=== PATIENT | male | born 1955 | race Caucasian/White ===

== ENCOUNTER 2019-10-28 00:26 | Inpatient (IN) ==
[2019-10-28 01:26] LABS: Basophils % 0.1 %; Eosinophils % 0.4 %; Hematocrit 41.6 % (37.5-50.1); Hemoglobin 12.8 g/dL (12.9-16.9); Immature Granulocytes % 0.1 % (0-4); Lymphocytes # 0.2 K/mcL (0.6-4.6); Lymphocytes % 3.3 %; Mean Corpuscular HGB Conc 30.8 g/dL (31.6-35.5); Mean Corpuscular Hemoglobin 28.5 pg (28.0-33.3); Mean Corpuscular Volume 92.7 fL (83.0-100.0); Monocytes # 0.1 K/mcL (0.0-1.3); Monocytes % 1.1 %; Platelet Count 196 K/mcL (140-400); Red Blood Count 4.49 M/mcL (4.19-5.50); Red Cell Distribution Width 14.8 % (11.5-14.5); White Blood Count 7.4 K/mcL (4.3-11.1)
[2019-10-28 01:34] LABS: Prothrombin Time 22.7 Seconds (9.4-12.1)
[2019-10-28 01:37] LABS: Activated Partial Thrombo Time 31.5 Seconds (26.0-36.0)
[2019-10-28 01:47] LABS: BUN/Creatinine Ratio 22 (6-26); Blood Urea Nitrogen 18 mg/dL (8-23); Calcium 9.3 mg/dL (8.6-10.3); Carbon Dioxide 25 mEq/L (23-29); Chloride 106 mEq/L (98-107); Glucose 101 mg/dL (70-105); Osmolality,Calculated 290 (280-300); Potassium 3.9 mEq/L (3.5-5.1); Sodium 139 mEq/L (136-145); Troponin I < 0.03 ng/mL (< 0.04); eGFR For African Americans > 60 (> 60); eGFR For Non-African Americans > 60 (> 60)
[2019-10-28] MEDS ORDERED: cephALEXin 500 MG CAPSULE PO STA (05:21)
[2019-10-28] MEDS ORDERED: cefTRIAXone 2,000 MG in Water for inj. (sterile) 20 ML IVP STA (05:45)
[2019-10-28] MEDS: Furosemide 40 MG/4 ML VIAL IVP SCH ×2 (12:58→22:17)
[2019-10-28] MEDS ORDERED: Perflutren Lipid Microsphere 1.3 ML in 0.9 % Sodium Chloride 8.7 ML IVP ONE (15:52)
[2019-10-28] MEDS ORDERED: Warfarin perPT PO PRN (20:58)
[2019-10-28] MEDS ORDERED: *HR* Warfarin 2.5 MG TABLET PO ONE (21:45)
[2019-10-29 02:00] LABS: Basophils % 0.1 %; Hematocrit 36.2 % (37.5-50.1); Hemoglobin 11.6 g/dL (12.9-16.9); Immature Granulocytes % 1.9 % (0-4); Lymphocytes # 0.4 K/mcL (0.6-4.6); Lymphocytes % 2.1 %; Mean Corpuscular Hemoglobin 28.5 pg (28.0-33.3); Mean Corpuscular Volume 88.9 fL (83.0-100.0); Mean Platelet Volume 9.2 fL (9.4-12.4); Monocytes # 0.5 K/mcL (0.0-1.3); Monocytes % 3.2 %; Platelet Count 165 K/mcL (140-400); Red Blood Count 4.07 M/mcL (4.19-5.50); Red Cell Distribution Width 15.7 % (11.5-14.5); Segmented Neutrophils % 92.7 %
[2019-10-29 02:07] LABS: Neutrophils # 15.6 K/mcL (1.6-8.9); White Blood Count 16.8 K/mcL (4.3-11.1)
[2019-10-29 02:18] LABS: Prothrombin Time 34.6 Seconds (9.4-12.1)
[2019-10-29 02:19] LABS: BUN/Creatinine Ratio 22 (6-26); Blood Urea Nitrogen 25 mg/dL (8-23); Calcium 8.7 mg/dL (8.6-10.3); Carbon Dioxide 26 mEq/L (23-29); Chloride 105 mEq/L (98-107); Glucose 93 mg/dL (70-105); Osmolality,Calculated 290 (280-300); Sodium 138 mEq/L (136-145); eGFR For African Americans > 60 (> 60); eGFR For Non-African Americans > 60 (> 60)
[2019-10-29 02:41] LABS: Platelet Estimate Normal (Normal)
[2019-10-29] MEDS: cefTRIAXone 2,000 MG in Water for inj. (sterile) 20 ML IVP SCH (05:41)
[2019-10-29] MEDS: Furosemide 40 MG/4 ML VIAL IVP SCH (09:09)
[2019-10-30 02:33] LABS: BUN/Creatinine Ratio 28 (6-26); Blood Urea Nitrogen 23 mg/dL (8-23); Calcium 8.7 mg/dL (8.6-10.3); Carbon Dioxide 26 mEq/L (23-29); Chloride 102 mEq/L (98-107); Glucose 78 mg/dL (70-105); Magnesium 1.9 mg/dL (1.6-2.6); Osmolality,Calculated 285 (280-300); Potassium 4.2 mEq/L (3.5-5.1); Sodium 136 mEq/L (136-145); eGFR For African Americans > 60 (> 60); eGFR For Non-African Americans > 60 (> 60)
[2019-10-30] MEDS: cefTRIAXone 2,000 MG in Water for inj. (sterile) 20 ML IVP SCH (06:25)
[2019-10-30] MEDS: Trolamine Salicylate/Aloe Vera 85 APPL/85 GM TUBE TP PRN ×3 (10:11→23:25)
[2019-10-30] MEDS ORDERED: Acetaminophen 325 MG TABLET PO PRN (11:10)
[2019-10-30] MEDS: Acetaminophen 325 MG TABLET PO PRN ×2 (11:45→17:41)
[2019-10-30 16:02] LABS: Hematocrit 34.5 % (37.5-50.1); Hemoglobin 10.8 g/dL (12.9-16.9); Mean Corpuscular HGB Conc 31.3 g/dL (31.6-35.5); Mean Corpuscular Hemoglobin 28.6 pg (28.0-33.3); Mean Corpuscular Volume 91.3 fL (83.0-100.0); Mean Platelet Volume 9.7 fL (9.4-12.4); Platelet Count 150 K/mcL (140-400); Red Blood Count 3.78 M/mcL (4.19-5.50); Red Cell Distribution Width 15.4 % (11.5-14.5)
[2019-10-30 16:08] LABS: INR 1.9; Prothrombin Time 21.1 Seconds (9.4-12.1)
[2019-10-30] MEDS ORDERED: *HR* Warfarin 2.5 MG TABLET PO ONE (18:00)
[2019-10-31 02:51] LABS: Hemoglobin 11.2 g/dL (12.9-16.9); Mean Corpuscular HGB Conc 31.1 g/dL (31.6-35.5); Mean Corpuscular Hemoglobin 28.3 pg (28.0-33.3); Mean Corpuscular Volume 90.9 fL (83.0-100.0); Mean Platelet Volume 9.7 fL (9.4-12.4); Platelet Count 151 K/mcL (140-400); Red Blood Count 3.96 M/mcL (4.19-5.50); Red Cell Distribution Width 15.1 % (11.5-14.5); White Blood Count 6.7 K/mcL (4.3-11.1)
[2019-10-31 03:00] LABS: INR 1.7; Prothrombin Time 19.1 Seconds (9.4-12.1)
[2019-10-31 03:13] LABS: BUN/Creatinine Ratio 26 (6-26); Blood Urea Nitrogen 24 mg/dL (8-23); Calcium 8.7 mg/dL (8.6-10.3); Carbon Dioxide 28 mEq/L (23-29); Chloride 102 mEq/L (98-107); Glucose 104 mg/dL (70-105); Osmolality,Calculated 288 (280-300); Potassium 4.7 mEq/L (3.5-5.1); Sodium 137 mEq/L (136-145); eGFR For African Americans > 60 (> 60); eGFR For Non-African Americans > 60 (> 60)
[2019-10-31] MEDS: Nystatin POWDER 30 GM BOTTLE TP SCH ×4 (03:39→22:21)
[2019-10-31] MEDS: cefTRIAXone 2,000 MG in Water for inj. (sterile) 20 ML IVP SCH (06:03)
[2019-10-31] MEDS: Acetaminophen 325 MG TABLET PO PRN ×2 (09:04→17:12)
[2019-10-31] MEDS ORDERED: *HR* Warfarin 5 MG TABLET PO ONE (18:00)
[2019-11-01 02:22] LABS: INR 1.7
[2019-11-01] MEDS: Acetaminophen 325 MG TABLET PO PRN (03:25)
[2019-11-01] MEDS: cefTRIAXone 2,000 MG in Water for inj. (sterile) 20 ML IVP SCH (05:10)
[2019-11-01] MEDS: Furosemide 20 MG TABLET PO SCH (10:15)
[2019-11-01] MEDS: Nystatin POWDER 30 GM BOTTLE TP SCH ×3 (10:15→22:31)
[2019-11-01] MEDS ORDERED: *HR* Warfarin 5 MG TABLET PO ONE (18:00)
[2019-11-02 02:49] LABS: INR 1.7; Prothrombin Time 19.2 Seconds (9.4-12.1)
[2019-11-02] MEDS: Acetaminophen 325 MG TABLET PO PRN (04:16)
[2019-11-02] MEDS: cefTRIAXone 2,000 MG in Water for inj. (sterile) 20 ML IVP SCH (06:18)
[2019-11-02] MEDS: Nystatin POWDER 30 GM BOTTLE TP SCH ×2 (09:47→15:41)
[2019-11-02] MEDS: Furosemide 20 MG TABLET PO SCH (09:47)
[2019-11-02] MEDS ORDERED: *HR* Warfarin 5 MG TABLET PO ONE (18:00)
[2019-11-03] MEDS: Nystatin POWDER 30 GM BOTTLE TP SCH ×3 (00:13→16:08)
[2019-11-03] MEDS: Acetaminophen 325 MG TABLET PO PRN (00:16)
[2019-11-03] MEDS: cefTRIAXone 2,000 MG in Water for inj. (sterile) 20 ML IVP SCH (05:34)
[2019-11-03 06:19] LABS: INR 1.8; Prothrombin Time 20.9 Seconds (9.4-12.1)
[2019-11-03] MEDS: Furosemide 20 MG TABLET PO SCH (10:01)
[2019-11-03] MEDS ORDERED: *HR* Warfarin 3 MG TABLET PO ONE (18:00)
[2019-11-04] MEDS: Nystatin POWDER 30 GM BOTTLE TP SCH ×2 (00:55→09:54)
[2019-11-04] MEDS: Acetaminophen 325 MG TABLET PO PRN (03:47)
[2019-11-04] MEDS: cefTRIAXone 2,000 MG in Water for inj. (sterile) 20 ML IVP SCH (05:59)
[2019-11-04 06:49] LABS: Hematocrit 37.5 % (37.5-50.1); Hemoglobin 11.8 g/dL (12.9-16.9); Mean Corpuscular HGB Conc 31.5 g/dL (31.6-35.5); Mean Corpuscular Hemoglobin 28.6 pg (28.0-33.3); Mean Platelet Volume 9.6 fL (9.4-12.4); Platelet Count 204 K/mcL (140-400); Red Blood Count 4.12 M/mcL (4.19-5.50); Red Cell Distribution Width 14.8 % (11.5-14.5); White Blood Count 6.3 K/mcL (4.3-11.1)
[2019-11-04 06:51] VITALS: BP 115/71
[2019-11-04 06:53] LABS: INR 2.2; Prothrombin Time 24.8 Seconds (9.4-12.1)
[2019-11-04 07:10] LABS: Alanine Aminotransferase 18 Units/L (7-52); Albumin 3.2 g/dL (3.5-5.7); Alkaline Phosphatase 35 Units/L (34-104); Aspartate Amino Transferase 17 Units/L (13-39); BUN/Creatinine Ratio 21 (6-26); Bilirubin,Total 0.3 mg/dL (0.3-1.0); Blood Urea Nitrogen 15 mg/dL (8-23); Calcium 8.7 mg/dL (8.6-10.3); Carbon Dioxide 28 mEq/L (23-29); Chloride 103 mEq/L (98-107); Globulin 3.2 g/dL (2.4-3.5); Glucose 97 mg/dL (70-105); Osmolality,Calculated 291 (280-300); Potassium 4.1 mEq/L (3.5-5.1); Sodium 140 mEq/L (136-145); Total Protein 6.4 g/dL (6.4-8.9); eGFR For African Americans > 60 (> 60); eGFR For Non-African Americans > 60 (> 60)
[2019-11-04] MEDS: Furosemide 20 MG TABLET PO SCH (09:54)
[2019-11-04] MEDS ORDERED: FLU Vac QV 19-20 (6Month+)/PF 0.5 ML SYRINGE IM ONE (12:38)
[2019-11-04] MEDS ORDERED: Aminoglycoside Consult 1 EACH MC ONE (15:40)
[2019-11-04] MEDS ORDERED: *HR* Warfarin 2.5 MG TABLET PO ONE (18:00)
== END 2019-11-04 15:41 | DRG 383 ==
LOC: CDU 00:26 → EMEROOARM 00:26 → SUATTDRO 06:12 → CDU 07:44 → 2NENU 12:42
PROVIDERS: ADMIT Family Medicine; ATTEND Internal Medicine

== ENCOUNTER 2020-10-13 10:19 | Inpatient (IN) ==
[2020-10-13] MEDS ORDERED: Warfarin perPT PO PRN (18:00)
[2020-10-13] MEDS ORDERED: Naloxone 0.4 MG/ML INJ IVP PRN (21:23)
[2020-10-13] MEDS ORDERED: Ondansetron 4 MG/2 ML VIAL IVP PRN (21:23)
[2020-10-13] MEDS ORDERED: *HR* Promethazine 25 MG/ML VIAL IM PRN (21:23)
[2020-10-13] MEDS ORDERED: Ketoconazole 2% CRM 15 GM TUBE TP PRN (21:30)
[2020-10-13 23:12] LABS: Basophils % 0.1 %; Eosinophils # 0.2 K/mcL (0.0-0.6); Eosinophils % 2.3 %; Hematocrit 37.1 % (37.5-50.1); Hemoglobin 11.2 g/dL (12.9-16.9); Immature Granulocytes % 0.1 % (0-4); Lymphocytes # 1.3 K/mcL (0.6-4.6); Lymphocytes % 18.5 %; Mean Corpuscular HGB Conc 30.2 g/dL (31.6-35.5); Mean Corpuscular Hemoglobin 27.3 pg (28.0-33.3); Mean Corpuscular Volume 90.3 fL (83.0-100.0); Monocytes # 0.8 K/mcL (0.0-1.3); Monocytes % 11.5 %; Neutrophils # 4.6 K/mcL (1.6-8.9); Platelet Count 213 K/mcL (140-400); Red Blood Count 4.11 M/mcL (4.19-5.50); Red Cell Distribution Width 14.4 % (11.5-14.5); Segmented Neutrophils % 67.5 %; White Blood Count 6.9 K/mcL (4.3-11.1)
[2020-10-13 23:15] LABS: INR 2.7; Prothrombin Time 30.9 Seconds (9.4-12.1)
[2020-10-13] MEDS ORDERED: *HR* Warfarin 2.5 MG TABLET PO ONE (23:30)
[2020-10-13 23:47] LABS: Alanine Aminotransferase 8 Units/L (7-52); Albumin 3.6 g/dL (3.5-5.7); Albumin/Globulin Ratio 1.2 (1.1-2.2); Alkaline Phosphatase 37 Units/L (34-104); Aspartate Amino Transferase 10 Units/L (13-39); BUN/Creatinine Ratio 21 (6-26); Bilirubin,Total 0.6 mg/dL (0.3-1.0); Blood Urea Nitrogen 16 mg/dL (8-23); Calcium 9.2 mg/dL (8.6-10.3); Carbon Dioxide 32 mEq/L (23-29); Chloride 102 mEq/L (98-107); Chol/HDL Ratio 3.9 (0-4.9); Cholesterol 159 mg/dL (< 200); Globulin 3.1 g/dL (2.4-3.5); Glucose 93 mg/dL (70-105); HDL Cholesterol 41 mg/dL (40-59); LDL Cholesterol,Calculated 98 mg/dL (< 100); Magnesium 1.9 mg/dL (1.6-2.6); Osmolality,Calculated 287 (280-300); Phosphorous 3.2 mg/dL (2.7-4.5); Potassium 4.6 mEq/L (3.5-5.1); Sodium 138 mEq/L (136-145); Total Protein 6.7 g/dL (6.4-8.9); Triglycerides 99 mg/dL (< 150); eGFR For African Americans > 60 (> 60); eGFR For Non-African Americans > 60 (> 60)
[2020-10-14] MEDS: Cefepime HCl 1,000 MG in Water for inj. (sterile) 10 ML IVP SCH ×4 (00:12→23:03)
[2020-10-14] MEDS: Vancomycin 2,000 MG/520 ML IV.SOLN IVPB SCH ×3 (00:15→23:02)
[2020-10-14] MEDS: *HR* OxyCODONE Immed Rel 5 MG TABLET PO PRN ×4 (02:22→22:14)
[2020-10-14] MEDS: Furosemide 40 MG TABLET PO SCH (07:41)
[2020-10-14 07:52] LABS: Basophils % 0.1 %; Eosinophils # 0.1 K/mcL (0.0-0.6); Immature Granulocytes % 0.3 % (0-4); Lymphocytes % 14.5 %; Mean Corpuscular HGB Conc 30.6 g/dL (31.6-35.5); Mean Corpuscular Hemoglobin 27.6 pg (28.0-33.3); Mean Corpuscular Volume 90.5 fL (83.0-100.0); Monocytes # 0.8 K/mcL (0.0-1.3); Monocytes % 12.1 %; Neutrophils # 4.9 K/mcL (1.6-8.9); Platelet Count 212 K/mcL (140-400); Red Blood Count 3.98 M/mcL (4.19-5.50); Red Cell Distribution Width 14.5 % (11.5-14.5); White Blood Count 6.9 K/mcL (4.3-11.1)
[2020-10-14 07:56] LABS: INR 2.7; Prothrombin Time 30.7 Seconds (9.4-12.1)
[2020-10-14 08:03] LABS: BUN/Creatinine Ratio 19 (6-26); Blood Urea Nitrogen 15 mg/dL (8-23); Calcium 9.1 mg/dL (8.6-10.3); Carbon Dioxide 32 mEq/L (23-29); Chloride 103 mEq/L (98-107); Glucose 93 mg/dL (70-105); Osmolality,Calculated 289 (280-300); Potassium 4.1 mEq/L (3.5-5.1); Sodium 139 mEq/L (136-145); eGFR For African Americans > 60 (> 60); eGFR For Non-African Americans > 60 (> 60)
[2020-10-14] MEDS: Miconazole 2% ointment 141 APPL/141 GM TUBE TP SCH ×2 (17:53→20:41)
[2020-10-14] MEDS ORDERED: *HR* Warfarin 5 MG TABLET PO ONE (18:00)
[2020-10-15 03:02] LABS: INR 3.1; Prothrombin Time 34.3 Seconds (9.4-12.1)
[2020-10-15] MEDS: Cefepime HCl 1,000 MG in Water for inj. (sterile) 10 ML IVP SCH ×2 (07:48→16:41)
[2020-10-15] MEDS: *HR* OxyCODONE Immed Rel 5 MG TABLET PO PRN ×3 (07:48→21:46)
[2020-10-15] MEDS: Furosemide 40 MG TABLET PO SCH ×2 (07:48→16:42)
[2020-10-15] MEDS: Miconazole 2% ointment 141 APPL/141 GM TUBE TP SCH ×2 (10:11→21:25)
[2020-10-15] MEDS: Vancomycin 2,000 MG/520 ML IV.SOLN IVPB SCH (14:15)
[2020-10-15] MEDS ORDERED: *HR* Warfarin 2.5 MG TABLET PO ONE (18:00)
[2020-10-15] MEDS: Sennosides/Docusate Sodium TABLET PO SCH (21:46)
[2020-10-16] MEDS: Cefepime HCl 1,000 MG in Water for inj. (sterile) 10 ML IVP SCH ×4 (00:05→23:37)
[2020-10-16] MEDS: Vancomycin 1,750 MG/517.5 ML IV.SOLN IVPB SCH ×3 (00:06→23:38)
[2020-10-16 03:45] LABS: INR 2.9; Prothrombin Time 32.7 Seconds (9.4-12.1)
[2020-10-16] MEDS: Acetaminophen 325 MG TABLET PO PRN ×2 (08:46→15:47)
[2020-10-16] MEDS: *HR* OxyCODONE Immed Rel 5 MG TABLET PO PRN ×2 (08:46→15:46)
[2020-10-16] MEDS: Sennosides/Docusate Sodium TABLET PO SCH ×2 (08:47→21:49)
[2020-10-16] MEDS: Furosemide 40 MG TABLET PO SCH ×2 (08:47→15:46)
[2020-10-16] MEDS: Miconazole 2% ointment 141 APPL/141 GM TUBE TP SCH ×2 (08:48→21:49)
[2020-10-16] MEDS ORDERED: *HR* LORazepam 2 MG/ML VIAL IVP PRN (14:41)
[2020-10-16] MEDS ORDERED: *HR* Warfarin 2.5 MG TABLET PO ONE (18:00)
[2020-10-17] MEDS: *HR* OxyCODONE Immed Rel 5 MG TABLET PO PRN ×3 (01:36→14:05)
[2020-10-17] MEDS: Sennosides/Docusate Sodium TABLET PO SCH ×2 (07:58→20:36)
[2020-10-17] MEDS: Acetaminophen 325 MG TABLET PO PRN ×2 (07:58→14:05)
[2020-10-17] MEDS: Furosemide 40 MG TABLET PO SCH ×2 (07:58→16:50)
[2020-10-17] MEDS: Cefepime HCl 1,000 MG in Water for inj. (sterile) 10 ML IVP SCH ×2 (10:46→16:49)
[2020-10-17] MEDS: Miconazole 2% ointment 141 APPL/141 GM TUBE TP SCH ×2 (10:48→20:49)
[2020-10-17 11:57] LABS: Basophils % 0.2 %; Eosinophils # 0.3 K/mcL (0.0-0.6); Eosinophils % 5.4 %; Hematocrit 36.4 % (37.5-50.1); Hemoglobin 11.1 g/dL (12.9-16.9); Immature Granulocytes % 0.4 % (0-4); Lymphocytes # 0.9 K/mcL (0.6-4.6); Lymphocytes % 17.6 %; Mean Corpuscular HGB Conc 30.5 g/dL (31.6-35.5); Mean Corpuscular Hemoglobin 27.5 pg (28.0-33.3); Mean Corpuscular Volume 90.3 fL (83.0-100.0); Mean Platelet Volume 9.3 fL (9.4-12.4); Monocytes # 0.6 K/mcL (0.0-1.3); Monocytes % 11.8 %; Neutrophils # 3.1 K/mcL (1.6-8.9); Platelet Count 219 K/mcL (140-400); Red Blood Count 4.03 M/mcL (4.19-5.50); Red Cell Distribution Width 14.7 % (11.5-14.5); Segmented Neutrophils % 64.6 %; White Blood Count 4.8 K/mcL (4.3-11.1)
[2020-10-17 12:16] LABS: BUN/Creatinine Ratio 19 (6-26); Blood Urea Nitrogen 16 mg/dL (8-23); Carbon Dioxide 30 mEq/L (23-29); Chloride 100 mEq/L (98-107); Glucose 114 mg/dL (70-105); Osmolality,Calculated 284 (280-300); Potassium 3.8 mEq/L (3.5-5.1); Sodium 136 mEq/L (136-145); eGFR For African Americans > 60 (> 60); eGFR For Non-African Americans > 60 (> 60)
[2020-10-17 12:30] LABS: INR 2.3; Prothrombin Time 25.9 Seconds (9.4-12.1)
[2020-10-17 13:39] LABS: Vancomycin,Trough 20 mcg/mL (5-10)
[2020-10-17] MEDS: Vancomycin 1,750 MG/517.5 ML IV.SOLN IVPB SCH (14:06)
[2020-10-17] MEDS ORDERED: *HR* Warfarin 5 MG TABLET PO ONE (18:00)
[2020-10-18] MEDS: Cefepime HCl 1,000 MG in Water for inj. (sterile) 10 ML IVP SCH ×3 (00:14→15:17)
[2020-10-18] MEDS: Vancomycin 1,500 MG/265 ML IV.SOLN IVPB SCH ×2 (01:43→13:37)
[2020-10-18 03:57] LABS: Basophils % 0.2 %; Eosinophils # 0.3 K/mcL (0.0-0.6); Eosinophils % 5.2 %; Hematocrit 34.4 % (37.5-50.1); Hemoglobin 10.3 g/dL (12.9-16.9); Immature Granulocytes % 0.2 % (0-4); Lymphocytes # 1.1 K/mcL (0.6-4.6); Lymphocytes % 21.9 %; Mean Corpuscular HGB Conc 29.9 g/dL (31.6-35.5); Mean Corpuscular Hemoglobin 26.9 pg (28.0-33.3); Mean Corpuscular Volume 89.8 fL (83.0-100.0); Monocytes # 0.7 K/mcL (0.0-1.3); Monocytes % 13.7 %; Neutrophils # 2.8 K/mcL (1.6-8.9); Platelet Count 177 K/mcL (140-400); Red Blood Count 3.83 M/mcL (4.19-5.50); Red Cell Distribution Width 14.6 % (11.5-14.5); Segmented Neutrophils % 58.8 %; White Blood Count 4.8 K/mcL (4.3-11.1)
[2020-10-18 04:01] LABS: INR 2.2; Prothrombin Time 24.5 Seconds (9.4-12.1)
[2020-10-18 04:14] LABS: BUN/Creatinine Ratio 20 (6-26); Blood Urea Nitrogen 16 mg/dL (8-23); Calcium 8.9 mg/dL (8.6-10.3); Carbon Dioxide 33 mEq/L (23-29); Chloride 102 mEq/L (98-107); Glucose 91 mg/dL (70-105); Osmolality,Calculated 285 (280-300); Potassium 3.9 mEq/L (3.5-5.1); Sodium 137 mEq/L (136-145); eGFR For African Americans > 60 (> 60); eGFR For Non-African Americans > 60 (> 60)
[2020-10-18] MEDS: Sennosides/Docusate Sodium TABLET PO SCH ×2 (07:39→22:03)
[2020-10-18] MEDS: Miconazole 2% ointment 141 APPL/141 GM TUBE TP SCH ×2 (07:40→22:04)
[2020-10-18] MEDS: Furosemide 40 MG TABLET PO SCH ×2 (07:40→17:21)
[2020-10-18] MEDS: *HR* OxyCODONE Immed Rel 5 MG TABLET PO PRN (17:21)
[2020-10-18] MEDS ORDERED: *HR* Warfarin 2.5 MG TABLET PO ONE (18:00)
[2020-10-19] MEDS: *HR* OxyCODONE Immed Rel 5 MG TABLET PO PRN ×2 (00:13→23:46)
[2020-10-19] MEDS: Cefepime HCl 1,000 MG in Water for inj. (sterile) 10 ML IVP SCH ×2 (00:13→08:33)
[2020-10-19 02:04] LABS: INR 2.2; Prothrombin Time 25.2 Seconds (9.4-12.1)
[2020-10-19] MEDS: Vancomycin 1,500 MG/265 ML IV.SOLN IVPB SCH ×2 (02:39→13:35)
[2020-10-19] MEDS: Furosemide 40 MG TABLET PO SCH ×2 (08:34→17:26)
[2020-10-19] MEDS: Sennosides/Docusate Sodium TABLET PO SCH ×2 (08:34→20:31)
[2020-10-19] MEDS: Miconazole 2% ointment 141 APPL/141 GM TUBE TP SCH ×2 (11:32→20:31)
[2020-10-19] MEDS ORDERED: *HR* Warfarin 5 MG TABLET PO ONE (18:00)
[2020-10-20 06:43] LABS: INR 2.1; Prothrombin Time 23.4 Seconds (9.4-12.1)
[2020-10-20 06:59] LABS: BUN/Creatinine Ratio 17 (6-26); Blood Urea Nitrogen 14 mg/dL (8-23); Carbon Dioxide 32 mEq/L (23-29); Chloride 99 mEq/L (98-107); Glucose 96 mg/dL (70-105); Osmolality,Calculated 284 (280-300); Potassium 3.7 mEq/L (3.5-5.1); Sodium 137 mEq/L (136-145); eGFR For African Americans > 60 (> 60); eGFR For Non-African Americans > 60 (> 60)
[2020-10-20] MEDS: Sennosides/Docusate Sodium TABLET PO SCH (07:56)
[2020-10-20] MEDS: Furosemide 40 MG TABLET PO SCH (07:56)
[2020-10-20] MEDS: Miconazole 2% ointment 141 APPL/141 GM TUBE TP SCH (07:57)
[2020-10-20] MEDS ORDERED: levoFLOXacin 750 MG TABLET PO SCH (11:45)
[2020-10-20] MEDS ORDERED: Vancomycin 1,750 MG/517.5 ML IV.SOLN IVPB SCH (12:00)
[2020-10-20 13:10] LABS: Adenovirus Not Detected (Not Detect); Bordetella Pertussis Not Detected (Not Detect); Chlamydophila pneumoniae Not Detected (Not Detect); Coronavirus 229E Not Detected (Not Detect); Coronavirus HKU1 Not Detected (Not Detect); Coronavirus NL63 Not Detected (Not Detect); Coronavirus OC43 Not Detected (Not Detect); Human Metapneumovirus Not Detected (Not Detect); Human Rhinovirus/Enterovirus Not Detected (Not Detect); Influenza A Subtype 2009 H1 Not Detected (Not Detect); Influenza B Not Detected (Not Detect); Mycoplasma pneumoniae Not Detected (Not Detect); Parainfluenza Virus 1 Not Detected (Not Detect); Parainfluenza Virus 2 Not Detected (Not Detect); Parainfluenza Virus 3 Not Detected (Not Detect); Parainfluenza Virus 4 Not Detected (Not Detect); Respiratory Syncytial Virus Not Detected (Not Detect); SARS-CoV-2 Not Detected (Not Detect)
[2020-10-20 15:43] VITALS: BP 134/78
[2020-10-20] MEDS ORDERED: *HR* Warfarin 2 MG TABLET PO ONE (18:00)
== END 2020-10-20 16:58 ==
LOC: 3BNU → SUATTDRO 17:09 → 3NENU 10-15 13:36 → SUATTDRO 10-15 23:19
PROVIDERS: ADMIT Internal Medicine; ATTEND Internal Medicine

== ENCOUNTER 2021-05-31 11:18 | Inpatient (IN) ==
[2021-05-31 13:45] LABS: Basophils % 0.4 %; Eosinophils # 0.2 K/mcL (0.0-0.6); Eosinophils % 3.9 %; Hematocrit 38.1 % (37.5-50.1); Hemoglobin 11.5 g/dL (12.9-16.9); Immature Granulocytes % 0.2 % (0-4); Lymphocytes # 1.1 K/mcL (0.6-4.6); Lymphocytes % 19.9 %; Mean Corpuscular HGB Conc 30.2 g/dL (31.6-35.5); Mean Corpuscular Hemoglobin 27.5 pg (28.0-33.3); Mean Corpuscular Volume 91.1 fL (83.0-100.0); Monocytes # 0.7 K/mcL (0.0-1.3); Monocytes % 11.7 %; Neutrophils # 3.6 K/mcL (1.6-8.9); Platelet Count 158 K/mcL (140-400); Red Blood Count 4.18 M/mcL (4.19-5.50); Red Cell Distribution Width 15.2 % (11.5-14.5); Segmented Neutrophils % 63.9 %; White Blood Count 5.6 K/mcL (4.3-11.1)
[2021-05-31 14:00] LABS: Estimated Average Glucose 123 mg/dl; Hemoglobin A1C 5.9 %
[2021-05-31 14:11] LABS: % Iron Saturation 10 % (20-55); Alanine Aminotransferase 11 Units/L (7-52); Albumin 3.8 g/dL (3.5-5.7); Albumin/Globulin Ratio 1.2 (1.1-2.2); Alkaline Phosphatase 37 Units/L (34-104); Aspartate Amino Transferase 13 Units/L (13-39); BUN/Creatinine Ratio 19 (6-26); Bilirubin,Direct 0.1 mg/dL (0.0-0.2); Bilirubin,Indirect 0.5 mg/dL (0.0-1.0); Bilirubin,Total 0.6 mg/dL (0.3-1.0); Blood Urea Nitrogen 17 mg/dL (8-23); Calcium 9.1 mg/dL (8.6-10.3); Carbon Dioxide 33 mEq/L (23-29); Chloride 102 mEq/L (98-107); Chol/HDL Ratio 3.6 (0-4.9); Cholesterol 168 mg/dL (< 200); Globulin 3.1 g/dL (2.4-3.5); Glucose 95 mg/dL (70-105); HDL Cholesterol 47 mg/dL (40-59); Iron 39 mcg/dL (65-175); LDL Cholesterol,Calculated 106 mg/dL (< 100); Osmolality,Calculated 289 (280-300); Potassium 4.6 mEq/L (3.5-5.1); Sodium 139 mEq/L (136-145); Total Protein 6.9 g/dL (6.4-8.9); Transferrin 286 mg/dL (203-362); Triglycerides 75 mg/dL (< 150); eGFR For African Americans > 60 (> 60); eGFR For Non-African Americans > 60 (> 60)
[2021-05-31] MEDS ORDERED: Furosemide 40 MG/4 ML VIAL IVP STA (14:15)
[2021-05-31 14:27] LABS: Ferritin 63 ng/mL (20-250)
[2021-05-31 14:47] LABS: Parathyroid Hormone Intact 71.4 pg/ml (10.0-65.0)
[2021-05-31] MEDS ORDERED: Naloxone 0.4 MG/ML INJ IVP PRN (16:43)
[2021-05-31] MEDS ORDERED: Ondansetron 4 MG/2 ML VIAL IVP PRN (16:43)
[2021-05-31] MEDS ORDERED: Melatonin 3 MG TABLET PO PRN (16:43)
[2021-05-31] MEDS ORDERED: Perflutren Lipid Microsphere 1.3 ML in 0.9 % Sodium Chloride 8.7 ML IVP PRN (16:47)
[2021-05-31] MEDS ORDERED: Ketoconazole 2% CRM 15 GM TUBE TP PRN (16:48)
[2021-05-31] MEDS ORDERED: Warfarin perPT PO PRN (18:00)
[2021-05-31] MEDS: *HR* OxyCODONE Immed Rel 5 MG TABLET PO PRN (19:54)
[2021-05-31] MEDS: Furosemide 40 MG/4 ML VIAL IVP SCH (19:54)
[2021-05-31] MEDS: Iron Sucrose Complex 200 MG in 0.9 % Sodium Chloride 100 ML IVPB SCH (19:55)
[2021-05-31 22:23] LABS: INR 1.6; Prothrombin Time 18.5 Seconds (9.4-12.1)
[2021-06-01 06:54] LABS: VBG Ionized Calcium 1.12 mmol/L (1.15-1.35)
[2021-06-01 07:46] LABS: Hematocrit 39.1 % (37.5-50.1); Hemoglobin 11.6 g/dL (12.9-16.9); Mean Corpuscular HGB Conc 29.7 g/dL (31.6-35.5); Mean Corpuscular Hemoglobin 27.7 pg (28.0-33.3); Mean Corpuscular Volume 93.3 fL (83.0-100.0); Mean Platelet Volume 9.5 fL (9.4-12.4); Platelet Count 184 K/mcL (140-400); Red Blood Count 4.19 M/mcL (4.19-5.50); Red Cell Distribution Width 15.4 % (11.5-14.5); White Blood Count 5.4 K/mcL (4.3-11.1)
[2021-06-01] MEDS: Iron Sucrose Complex 200 MG in 0.9 % Sodium Chloride 100 ML IVPB SCH (07:49)
[2021-06-01 07:51] LABS: BUN/Creatinine Ratio 17 (6-26); Blood Urea Nitrogen 17 mg/dL (8-23); Carbon Dioxide 39 mEq/L (23-29); Chloride 98 mEq/L (98-107); Glucose 98 mg/dL (70-105); INR 1.8; Magnesium 2.2 mg/dL (1.6-2.6); Osmolality,Calculated 294 (280-300); Prothrombin Time 20.8 Seconds (9.4-12.1); Sodium 141 mEq/L (136-145); eGFR For African Americans > 60 (> 60); eGFR For Non-African Americans > 60 (> 60)
[2021-06-01] MEDS: Furosemide 40 MG/4 ML VIAL IVP SCH ×2 (07:55→22:29)
[2021-06-01] MEDS: *HR* OxyCODONE Immed Rel 5 MG TABLET PO PRN (08:01)
[2021-06-01] MEDS: Gabapentin 300 MG CAPSULE PO SCH ×2 (12:14→18:32)
[2021-06-01] MEDS ORDERED: *HR* Warfarin 2.5 MG TABLET PO ONE (18:00)
[2021-06-02] MEDS: *HR* OxyCODONE Immed Rel 5 MG TABLET PO PRN (02:45)
[2021-06-02 03:17] LABS: INR 1.8; Prothrombin Time 20.3 Seconds (9.4-12.1)
[2021-06-02] MEDS: Furosemide 40 MG/4 ML VIAL IVP SCH ×2 (09:16→21:15)
[2021-06-02] MEDS: Iron Sucrose Complex 200 MG in 0.9 % Sodium Chloride 100 ML IVPB SCH (09:19)
[2021-06-02 10:02] LABS: BUN/Creatinine Ratio 21 (6-26); Blood Urea Nitrogen 21 mg/dL (8-23); Calcium 8.9 mg/dL (8.6-10.3); Carbon Dioxide 40 mEq/L (23-29); Chloride 95 mEq/L (98-107); Glucose 118 mg/dL (70-105); Osmolality,Calculated 290 (280-300); Potassium 3.8 mEq/L (3.5-5.1); Sodium 138 mEq/L (136-145); eGFR For African Americans > 60 (> 60); eGFR For Non-African Americans > 60 (> 60)
[2021-06-02] MEDS: Cholecalciferol (D-3) 1,000 UNIT (25MCG) TABLET PO SCH (16:16)
[2021-06-02] MEDS ORDERED: *HR* Warfarin 2.5 MG TABLET PO ONE (18:00)
[2021-06-02] MEDS: Acetaminophen 325 MG TABLET PO PRN (21:16)
[2021-06-03 01:29] LABS: Hematocrit 38.4 % (37.5-50.1); Hemoglobin 11.9 g/dL (12.9-16.9); Mean Corpuscular Hemoglobin 27.5 pg (28.0-33.3); Mean Corpuscular Volume 88.9 fL (83.0-100.0); Mean Platelet Volume 9.5 fL (9.4-12.4); Platelet Count 168 K/mcL (140-400); Red Blood Count 4.32 M/mcL (4.19-5.50); Red Cell Distribution Width 15.1 % (11.5-14.5); White Blood Count 7.4 K/mcL (4.3-11.1)
[2021-06-03 01:32] LABS: INR 1.6; Prothrombin Time 18.8 Seconds (9.4-12.1)
[2021-06-03 01:39] LABS: BUN/Creatinine Ratio 23 (6-26); Blood Urea Nitrogen 22 mg/dL (8-23); Carbon Dioxide 37 mEq/L (23-29); Chloride 95 mEq/L (98-107); Glucose 98 mg/dL (70-105); Osmolality,Calculated 287 (280-300); Potassium 3.9 mEq/L (3.5-5.1); Sodium 137 mEq/L (136-145); eGFR For African Americans > 60 (> 60); eGFR For Non-African Americans > 60 (> 60)
[2021-06-03] MEDS: Cholecalciferol (D-3) 1,000 UNIT (25MCG) TABLET PO SCH (09:33)
[2021-06-03] MEDS: Furosemide 40 MG/4 ML VIAL IVP SCH ×2 (09:33→19:52)
[2021-06-03 12:11] LABS: Vitamin A (Retinol) 0.41 mg/L (0.30-1.20); Vitamin A (Retinyl-palmitate) <0.02 mg/L (0.00-0.10)
[2021-06-03] MEDS: Acetaminophen 325 MG TABLET PO PRN (14:27)
[2021-06-03] MEDS ORDERED: *HR* Warfarin 5 MG TABLET PO ONE (18:00)
[2021-06-04 03:59] LABS: Hematocrit 38.1 % (37.5-50.1); Mean Corpuscular HGB Conc 31.5 g/dL (31.6-35.5); Mean Corpuscular Hemoglobin 27.8 pg (28.0-33.3); Mean Corpuscular Volume 88.4 fL (83.0-100.0); Mean Platelet Volume 9.2 fL (9.4-12.4); Platelet Count 172 K/mcL (140-400); Red Blood Count 4.31 M/mcL (4.19-5.50); Red Cell Distribution Width 15.2 % (11.5-14.5)
[2021-06-04 04:03] LABS: INR 1.6; Prothrombin Time 18.3 Seconds (9.4-12.1)
[2021-06-04 04:15] LABS: BUN/Creatinine Ratio 22 (6-26); Blood Urea Nitrogen 22 mg/dL (8-23); Calcium 9.2 mg/dL (8.6-10.3); Carbon Dioxide 36 mEq/L (23-29); Chloride 97 mEq/L (98-107); Glucose 97 mg/dL (70-105); Osmolality,Calculated 291 (280-300); Potassium 3.8 mEq/L (3.5-5.1); Sodium 139 mEq/L (136-145); eGFR For African Americans > 60 (> 60); eGFR For Non-African Americans > 60 (> 60)
[2021-06-04] MEDS: Furosemide 40 MG/4 ML VIAL IVP SCH (09:01)
[2021-06-04] MEDS: Cholecalciferol (D-3) 1,000 UNIT (25MCG) TABLET PO SCH (09:02)
[2021-06-04] MEDS: Acetaminophen 325 MG TABLET PO PRN (12:20)
[2021-06-04] MEDS ORDERED: *HR* Warfarin 5 MG TABLET PO ONE (18:00)
[2021-06-04] MEDS: Furosemide 20 MG TABLET PO SCH (18:40)
[2021-06-04] MEDS ORDERED: Furosemide 20 MG TABLET PO SCH (21:00)
[2021-06-05 03:36] LABS: Hematocrit 38.1 % (37.5-50.1); Hemoglobin 11.9 g/dL (12.9-16.9); Mean Corpuscular HGB Conc 31.2 g/dL (31.6-35.5); Mean Corpuscular Hemoglobin 27.7 pg (28.0-33.3); Mean Corpuscular Volume 88.8 fL (83.0-100.0); Mean Platelet Volume 9.1 fL (9.4-12.4); Platelet Count 166 K/mcL (140-400); Red Blood Count 4.29 M/mcL (4.19-5.50); Red Cell Distribution Width 15.3 % (11.5-14.5)
[2021-06-05 03:44] LABS: INR 1.7
[2021-06-05 03:56] LABS: BUN/Creatinine Ratio 26 (6-26); Blood Urea Nitrogen 24 mg/dL (8-23); Carbon Dioxide 33 mEq/L (23-29); Chloride 99 mEq/L (98-107); Glucose 100 mg/dL (70-105); Osmolality,Calculated 288 (280-300); Sodium 137 mEq/L (136-145); eGFR For African Americans > 60 (> 60); eGFR For Non-African Americans > 60 (> 60)
[2021-06-05 08:03] VITALS: BP 124/84; PULSE 82; TEMP 97.7; O2SAT 92
[2021-06-05] MEDS: Furosemide 20 MG TABLET PO SCH (09:03)
[2021-06-05] MEDS: Cholecalciferol (D-3) 1,000 UNIT (25MCG) TABLET PO SCH (09:03)
[2021-06-05] MEDS: Acetaminophen 325 MG TABLET PO PRN (12:39)
[2021-06-05] MEDS ORDERED: *HR* Warfarin 5 MG TABLET PO ONE (18:00)
== END 2021-06-05 15:18 | disposition home health service (06) | DRG 292 ==
LOC: EMEROOARM 11:18 → 2NENU 11:18 → SUATTDRO 16:07 → 2NENU 18:40 → 3BNU 06-03 00:03
PROVIDERS: ADMIT Internal Medicine; ATTEND Internal Medicine